=== PATIENT | female | born 1935 | race Caucasian/White ===

== ENCOUNTER 2019-05-01 19:50 | Emergency (ER) | payer MEDICARE, MEDICAID ==
[~2019-05-01] VITALS: Ht 154.9 cm; Wt 63.5 kg
--- NOTE | 2019-05-01 20:02 | NUR ---
PT BIBHUSBAND C/O URI SYMPTOMS X2 WEEKS. +PRODUCTIVE COUGH, YELLOW SPUTUM, -FEVER, -NASAL CONGESTION, -EARACHE. PT AOX4. NAD NOTED. RESP EVEN AND UNLABORED. COUGH NOTED. PT ON MONITOR IN BED 10 WITH FAMILY AT BEDSIDE. WILL CONTINUE TO MONITOR.
--- NOTE | 2019-05-01 20:20 | NUR ---
BLOOD DRAWN AND GIVEN TO LAB
[2019-05-01] MEDS ORDERED: ALBUTEROL FS 2.5 MG/3 ML VIAL.NEB ONE (20:23)
[2019-05-01] MEDS ORDERED: IPRATROPIUM NEB FS 0.5 MG/2.5 ML AMPUL.NEB ONE (20:23)
--- NOTE | 2019-05-01 20:27 | NUR ---
RT AT BEDSIDE FOR BREATHING TREATMENT
[2019-05-01] MEDS ORDERED: methylPREDNISolone SOD SUCC 125 MG/2ML VIAL ONE (20:28)
[2019-05-01] MEDS ORDERED: KETOROLAC TROMETHAMINE 15 MG/ML VIAL ONE (20:28)
[2019-05-01] MEDS ORDERED: IPRATROPIUM NEB FS 0.5 MG/2.5 ML AMPUL.NEB NEB ONE (20:30)
[2019-05-01] MEDS ORDERED: IV NS 0.9% 1,000 ML BAG IV ONE (20:30)
[2019-05-01] MEDS ORDERED: ALBUTEROL FS 2.5 MG/3 ML VIAL.NEB CONTNEB ONE (20:30)
[2019-05-01] MEDS ORDERED: KETOROLAC TROMETHAMINE INJ 30 MG/ML VIAL IV ONE (20:30)
[2019-05-01] MEDS ORDERED: methylPREDNISolone SOD SUCC 125 MG/2ML VIAL IV ONE (20:30)
--- NOTE | 2019-05-01 20:37 | NUR ---
RADIOLOGY AT BEDSIDE FOR XRAY
--- NOTE | 2019-05-01 20:41 | NUR ---
IV FLUIDS STOPPED PER MD ORDER
[2019-05-01 20:45] LABS: BASOPHILS # (AUTO) 0.2 /CMM (0.0-0.2); BASOPHILS % (AUTO) 1.4 % (0.0-2.0); EOSINOPHILS % (AUTO) 3.4 % (0.0-6.0); HEMATOCRIT 32 % (33-45); HEMOGLOBIN 9.9 g/dL (11.5-14.8); LYMPHOCYTES # (AUTO) 1.6 /CMM (0.8-4.8); LYMPHOCYTES % (AUTO) 13.5 % (20.0-44.0); MEAN CORPUSCULAR HGB CONC 31 g/dl (31.0-36.0); MEAN CORPUSCULAR VOLUME 77 fL (82-100); MONOCYTES # (AUTO) 0.9 /CMM (0.1-1.30); MONOCYTES % (AUTO) 7.9 % (2.0-12.0); NEUTROPHILS # (AUTO) 8.7 /CMM (1.8-8.9); NEUTROPHILS % (AUTO) 73.8 % (43.0-81.0); PLATELET COUNT (AUTO) 350 /CMM (150-450); RED BLOOD CELL COUNT(AUTO) 4.15 MIL/uL (4.0-5.2); WHITE BLOOD COUNT (AUTO) 11.7 K/uL (4.3-11.0)
[2019-05-01 20:48] LABS: CALCIUM, SERUM 9.6 mg/dL (8.5-10.1); CARBON DIOXIDE 27 mmol/L (21-32); CHLORIDE 100 mmol/L (98-107); GLUCOSE 181 mg/dL (74-106); POTASSIUM 4.6 mmol/L (3.5-5.1); SODIUM SERUM 138 mmol/L (136-145); UREA NITROGEN, BLOOD 37 mg/dL (7-18)
[2019-05-01] MEDS ORDERED: LEVOFLOXACIN 750 MG /D5W 150ML 150 ML IV ONE (20:56)
[2019-05-01] MEDS ORDERED: FUROSEMIDE 20 MG/2 ML VIAL IV ONE (21:00)
[2019-05-01] MEDS ORDERED: LEVOFLOXACIN 750 MG /D5W 150ML PIGGYBACK IV ONE (21:00)
[2019-05-01 21:09] LABS: ALANINE AMINOTRANSFERASE 22 U/L (12-78); ALKALINE PHOSPHATASE 72 U/L (46-116); ASPARTATE AMINOTRANSFERASE 41 U/L (15-37); BILIRUBIN,DIRECT 0.1 mg/dL (0.0-0.2); BILIRUBIN,TOTAL 0.6 mg/dL (0.2-1.0); LIPASE 489 U/L (73-393); TOTAL PROTEIN, SERUM 8.7 g/dL (6.4-8.2)
[2019-05-01] MEDS ORDERED: FUROSEMIDE 20 MG/2 ML VIAL ONE (21:09)
--- NOTE | 2019-05-01 23:01 | NUR ---
CALL [phone] 30 MINS BEFORE TRANSPORT. PT IS GOING TO ROOM 6S28. ALS TRANSPORT ORDERED WITH 60 MIN ETA (APPROX 2822) TRIP #[id number]
[2019-05-01 23:09] VITALS: BP 123/83
--- NOTE | 2019-05-01 23:21 | NUR ---
REPORT GIVEN TO AUSTIN SUAREZ AT [facility]
== END 2019-05-01 23:58 | disposition short-term general hospital (02) ==
LOC: ER 19:56 → UNDOADMIN 22:00 → TELE 22:00 → ER 23:58
DX: J20.9 Acute bronchitis, unspecified (principal); J44.1 Chronic obstructive pulmonary disease with (acute) exacerbation; I11.0 Hypertensive heart disease with heart failure; I50.9 Heart failure, unspecified; E11.9 Type 2 diabetes mellitus without complications; I48.91 Unspecified atrial fibrillation; I45.10 Unspecified right bundle-branch block; Z95.811 Presence of heart assist device; Z95.0 Presence of cardiac pacemaker; Z98.890 Other specified postprocedural states; Z60.2 Problems related to living alone; Z88.5 Allergy status to narcotic agent
CPT/HCPCS: 36415; 71045; 80048; 80076; 83690; 83880; 84484; 85025; 87040; 87081; 93005; 94644; 96365; 96366; 96375; 99291; J1885; J1940; J1956; J2930; J7030

== ENCOUNTER → 2024-07-07 | Emergency (ER) | payer MEDICARE, OTHER ==
[~2024-07-07] VITALS: Ht 152.4 cm; Wt 66.7 kg
[~2024-07-07] MED LIST: FUROSEMIDE 40 MG/4 ML VIAL ONE
[2024-07-07 18:30] LABS: BASOPHILS # (AUTO) 0.2 K/uL (0.0-0.2); BASOPHILS % (AUTO) 1.3 % (0.0-2.0); EOSINOPHILS # (AUTO) 0.7 K/uL (0.0-0.7); EOSINOPHILS % (AUTO) 4.1 % (0.0-6.0); HEMATOCRIT 22 % (33-45); HEMOGLOBIN 7.1 g/dL (11.5-14.8); LYMPHOCYTES % (AUTO) 5.9 % (20.0-44.0); MEAN CORPUSCULAR HEMOGLOBIN 25 PG (26.0-33.0); MEAN CORPUSCULAR HGB CONC 32 g/dl (31.0-36.0); MEAN CORPUSCULAR VOLUME 79 fL (82-100); MONOCYTES # (AUTO) 1.9 K/uL (0.1-1.30); MONOCYTES % (AUTO) 11.3 % (2.0-12.0); NEUTROPHILS # (AUTO) 12.9 K/uL (1.8-8.9); NEUTROPHILS % (AUTO) 77.4 % (43.0-81.0); PLATELET COUNT (AUTO) 286 K/uL (150-450); RED BLOOD CELL COUNT(AUTO) 2.78 MIL/uL (4.0-5.2); RED CELL DISTRIBUTION WIDTH 25.1 % (11.5-15.0); WHITE BLOOD COUNT (AUTO) 16.6 K/uL (4.3-11.0)
[2024-07-07 18:38] LABS: CALCIUM, SERUM 8.8 mg/dL (8.5-10.1); CARBON DIOXIDE 30 mmol/L (21-32); CHLORIDE 101 mmol/L (98-107); CREATININE 1.3 mg/dL (0.6-1.3); GLUCOSE 196 mg/dL (74-106); POTASSIUM 3.7 mmol/L (3.5-5.1); SODIUM SERUM 141 mmol/L (136-145); UREA NITROGEN, BLOOD 29 mg/dL (7-18)
[2024-07-07] MEDS: FUROSEMIDE 40 MG/4 ML VIAL IV ONE (18:40)
--- NOTE | 2024-07-07 18:44 | NUR ---
Clinicals sent to [facility] Addendum: 07/07/24 at 1857 by RAJESH Clinicals sent to Blake serrano [facility] [phone]
[2024-07-07 18:50] LABS: ALANINE AMINOTRANSFERASE 30 U/L (12-78); ALBUMIN 3.3 g/dL (3.4-5.0); ALKALINE PHOSPHATASE 107 U/L (46-116); ASPARTATE AMINOTRANSFERASE 64 U/L (15-37); BILIRUBIN,DIRECT 0.5 mg/dL (0.0-0.2); BILIRUBIN,TOTAL 1.8 mg/dL (0.2-1.0); NT-PRO BNP 5287 pg/mL (0-125); TOTAL PROTEIN, SERUM 7.5 g/dL (6.4-8.2)
[2024-07-07 18:51] LABS: INR 1.12 (0.91-1.10); PARTIAL THROMBOPLASTIN TIME 27.1 SEC (24.3-34.3); PROTHROMBIN TIME 11.8 SECS (9.2-11.1)
--- NOTE | 2024-07-07 18:52 | NUR ---
Lasix given as ordered Purewick applied
[2024-07-07 20:01] LABS: EOSINOPHILS % (MANUAL) 2 % (0-4); LYMPHOCYTES % (MANUAL) 14 % (16-48); MONOCYTES % (MANUAL) 5 % (0-11.0); NEUTROPHILS % (MANUAL) 79 (42-76); PLATELET ESTIMATE ADEQUATE
[2024-07-07 20:02] LABS: ANISOCYTOSIS 1+; OVALOCYTES RARE; TEAR DROP CELLS RARE
--- NOTE | 2024-07-07 20:43 | NUR ---
Covid swab sent to lab
--- NOTE | 2024-07-07 21:47 | NUR ---
FAXED CLINICALS TO [facility]
--- NOTE | 2024-07-07 21:52 | NUR ---
YUMIKO FERRELL ON THE PHONE R[facility]NEY [facility] PLACED [facility] ALS TRANSPORTATION ON WILL CALL
--- NOTE | 2024-07-07 21:59 | NUR ---
ASHISH CASTELAN: PATIENT IS ACCEPTED AT [facility]. GOING TO [address] MD: DR CASTANON # FOR REPORT: [phone] #2
--- NOTE | 2024-07-07 22:15 | NUR ---
CALLED [facility] FOR REPORT: [phone] #2, ACCORDING TO SULEIMAN CALL AGAIN AT 2230 FOR REPORT
--- NOTE | 2024-07-07 22:25 | NUR ---
PATIENT PASSES LARGE AMOUNT OF YELLOWISH URINE ON A DIAPER, PERINEAL CARE DONE NEW DIAPER AND BED SHEET PROVIDED
--- NOTE | 2024-07-07 22:46 | NUR ---
report given to IRA AVILA
--- NOTE | 2024-07-07 23:03 | NUR ---
[facility] RRANSPORTATION AT BED SIDE
[2024-07-07 23:08] VITALS: BP 148/89; TEMP 98.4; O2SAT 100
== END | disposition short-term general hospital (02) ==
LOC: ER 17:38
DX: I11.0 Hypertensive heart disease with heart failure (principal); I50.9 Heart failure, unspecified; R60.0 Localized edema; D64.9 Anemia, unspecified; R06.00 Dyspnea, unspecified; E11.9 Type 2 diabetes mellitus without complications; Z60.2 Problems related to living alone; Z20.822 Contact with and (suspected) exposure to COVID-19; Z88.5 Allergy status to narcotic agent
CPT/HCPCS: 99291; 96374; 87426; 93005; 71045; 85025; 80048; 80076; 36415; 84484; 85730; 83880; 85007; J1940